=== PATIENT | female | born 1970 | race Caucasian/White ===

== ENCOUNTER 2024-02-10 01:50 | Emergency (ER) | payer SELFPAY ==
[2024-02-10 01:50] VITALS: BMI 26.0
[2024-02-10 01:55] VITALS: BP 135/90
[2024-02-10 02:26] VITALS: BP 114/87
[2024-02-10 02:47] LABS: Urine Albumin Negative (Neg - Trace); Urine Bilirubin Negative (Negative); Urine Character Clear (Clear); Urine Color Yellow; Urine Glucose Negative (Negative); Urine Ketone Negative (Negative); Urine Leukocyte Trace (Negative); Urine Nitrite Negative (Negative); Urine Occult Blood Negative (Negative); Urine Urobilinogen Negative (Neg - 1+); Urine pH 6.5 (5.0-9.0)
[2024-02-10 03:00] VITALS: BP 108/82
--- NOTE | 2024-02-10 03:28 | ED.GENMED ---
History of Present Illness
<OLIVIA Wallis - Last Filed: 02/10/24 04:04>
General
Chief Complaint: Fatigue
Source: patient
Exam Limitations: none
Time Seen by Provider: 02/10/24 03:22
Nursing documentation reviewed up to this point in time: agreed with
History of Present Illness
History of Present Illness:
Pt is a 53 yo F with no significant PMH who presents to the ED for fatigue x 2 months. She states over the past two months she has noticed herself progressively getting tired faster throughout the day and just doesn't feel like herself. Pt
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 She was too tired to go into work today. She notes that she moved here within the past year and has not
established primary care so it has been a while since she has had lab work done. She admits to familial history of HTN on her father's side and breast/colon cancer on her mother's side. Pt denies CUETO, changes in vision, chest pain, SOB, dyspnea,
cough, fever, n/v/d/c, abdominal pain. Pt has a PMH of L clavicular surgery. Pt denies PMH of thyroid disorders, HTN, HLD, cancer.
Past History
<OLIVIA Wallis - Last Filed: 02/10/24 04:04>
Past History
ED Past Surgical History: Gynecological ()
Review of Systems
<OLIVIA Wallis - Last Filed: 02/10/24 04:04>
Review of Systems
Allergies reviewed?: Yes
Constitutional: Reports fatigue, sleep disturbance and chills (pt states this comes on randomly); Denies fever, weight gain, weight loss or night sweats
Respiratory: Denies cough, hemoptysis or trouble breathing
Cardiac: Denies chest pain, diaphoresis, palpitations or syncope
ABD/GI: Denies abdominal pain, nausea, vomiting, diarrhea or constipated
: Reports other (pt states she occasionally has cloudy urine after working when she holds her urine for extended periods of time ); Denies dysuria, frequency, flank pain, incontinence, difficulty voiding or urgency
Musculoskeletal: Reports back pain (lower)
Neurological: Denies dizzy, headache, weakness or numbness
Phy Exam
<OLIVIA Wallis - Last Filed: 02/10/24 04:04>
General Physical Exam
General Presentation: well appearing and no apparent distress
General age: appears stated age
General Skin: warm and dry
General Habitus: normal
General Mental: alert
General Hydration: appears well hydrated
Eye Exam
Eye Exam: PERRL
Cardiovascular Exam
Cardiovascular Exam: regular rate/rhythm and no edema
Heart Sounds: normal
Pulmonary Exam
Pulmonary Exam: lungs clear, no respiratory distress, no wheezing and no cough
Gastrointestinal Exam
Gastrointestinal Exam: normal bowel sounds, non tender, soft and non distended
Neurological Exam
Neurological Exam: alert, oriented x3, no motor deficits and no sensory deficits
Musculoskeletal Exam
Musculoskeletal Exam: back pain (not reproducible on palpation)
Psychiatric Exam
Psychiatric Exam: normal mood/affect
Course
<OLIVIA Wallis - Last Filed: 02/10/24 04:04>
Orders/Labs/Results
Orders:
Orders
02/10/24 02:31
Urinalysis Reflex To Culture Urgent
Date Specimen was Collected: 02/10/24
Time Specimen was Collected: 02:29
Urine Microscopic Reflex Cult Urgent
02/10/24 03:49
CBC/With Diff [Complete Blood Count/With Diff] Urgent
CMP [Comprehensive Metabolic Panel] Urgent
Free T4 Urgent
TSH Reflex To Free T4 Urgent
Abnormal Lab Results
02/10/24 02/10/24
02:31 03:49
MCH 31.2 H pg
(27.0-31.0)
Carbon Dioxide 19 L mmol/L
(22-30)
BUN 19 H mg/dl
(7-17)
AST 42 H U/L
(14-36)
TSH (Reflex) 5.87 H uIU/ml
(0.47-4.68)
Leukocyte Esterase Rfl Trace A
(Negative)
Urine Bacteria (Reflex) Few A
(Negative)
02/10/24 03:49
02/10/24 03:49
Vital Signs
Initial and Last Documented VS:
Initial Vital Signs
Temp Pulse Resp BP Pulse Ox
98.2 F 72 18 135/90 98
02/10/24 01:55 02/10/24 01:55 02/10/24 01:55 02/10/24 01:55 02/10/24 01:55
Last Documented Vital Signs
Temp Pulse Resp BP Pulse Ox
98.2 F 66 18 101/87 96
02/10/24 01:55 02/10/24 04:45 02/10/24 04:45 02/10/24 04:00 02/10/24 04:45
<Gabby Sadler, DO - Last Filed: 02/10/24 05:41>
Orders/Labs/Results
Orders:
Orders
02/10/24 02:31
Urinalysis Reflex To Culture Urgent
Date Specimen was Collected: 02/10/24
Time Specimen was Collected: 02:29
Urine Microscopic Reflex Cult Urgent
02/10/24 03:49
CBC/With Diff [Complete Blood Count/With Diff] Urgent
CMP [Comprehensive Metabolic Panel] Urgent
Free T4 Urgent
TSH Reflex To Free T4 Urgent
Abnormal Lab Results
02/10/24 02/10/24
02:31 03:49
MCH 31.2 H pg
(27.0-31.0)
Carbon Dioxide 19 L mmol/L
(22-30)
BUN 19 H mg/dl
(7-17)
AST 42 H U/L
(14-36)
TSH (Reflex) 5.87 H uIU/ml
(0.47-4.68)
Leukocyte Esterase Rfl Trace A
(Negative)
Urine Bacteria (Reflex) Few A
(Negative)
02/10/24 03:49
02/10/24 03:49
Vital Signs
Initial and Last Documented VS:
Initial Vital Signs
Temp Pulse Resp BP Pulse Ox
98.2 F 72 18 135/90 98
02/10/24 01:55 02/10/24 01:55 02/10/24 01:55 02/10/24 01:55 02/10/24 01:55
Last Documented Vital Signs
Temp Pulse Resp BP Pulse Ox
98.2 F 66 18 101/87 96
02/10/24 01:55 02/10/24 04:45 02/10/24 04:45 02/10/24 04:00 02/10/24 04:45
<OLIVIA Wallis - Last Filed: 02/10/24 04:04>
MDM/Problems Addressed
Differential Diagnosis Includes:
anxiety/depression, fibromyalgia, hypothyroidism
<OLIVIA Wallis - Last Filed: 02/10/24 04:04>
*Critical Care Note
Total Time (30-74mins, 75-104mins- exclusive of procedures): Not Applicable
<Gabby Sadler DO - Last Filed: 02/10/24 05:41>
*Pulse Oximetry
Patient hypoxic: no
ED Attending Note
<OLIVIA Wallis - Last Filed: 02/10/24 04:04>
-
Portions of this chart may have been created with voice recognition software.� Occasional wrong word or��sound alike� substitutions may have occurred due to the inherent limitations of voice recognition software.
<Gabby Sadler DO - Last Filed: 02/10/24 05:41>
ED Attending Note
Patient seen and examined by attending physician: Yes
I performed the substantive portion of visit, reviewed & personally made and approve the management plan that is documented in note by myself or CM.: Yes
ED Attending Note:
This is a 53-year-old woman with history of anxiety/depression, chronically maintained on Lexapro 20 mg daily. She admits to inadvertently running out of Lexapro 3 days ago as she relocated from [place] to this area in November and thus far
has not established with a local PCP. She does admit to moderate ongoing stress, working full-time in a restaurant as a breakfast server. She complains of several month history of generalized fatigue, generalized weakness, some low back pain and admits that
she holds her urine for extended time while at work and was concerned for possible kidney injury due to holding her urine. She denies dysuria nor urgency but occasionally notes some foul-smelling urine. She denies flank pain, no fever no chills,
no change in weight. Appetite has been good.
She has had no falls nor injuries. She does note intermittent low back pain, worse with bending and lifting but no radiation of the pain, no weakness nor numbness, no saddle anesthesia.
She is postmenopausal.
GENERAL: 53-year-old woman appears her stated age. Bright and alert, well-dressed, well-groomed, appears mildly anxious, somewhat worried but easily communicative and in no acute distress. Vital signs within normal limits.
EYE: pupils equal and reactive. anicteric
NECK: Supple, nontender, no meningismus, no significant adenopathy.
ENT: posterior pharynx is clear, oral mucosa is moist. TM clear b/l, nares patent.
CARDIAC: Regular rate and rhythm. no murmur.
LUNGS: Clear breath sounds bilaterally, no acute respiratory distress, no wheezes/rales/rhonchi
ABDOMEN: Soft, nondistended, without focal tenderness, no r/g, no cvat. normoactive BS.
NEUROLOGICAL: Alert and oriented x3, no focal neuro deficits. Gait is hathaway and steady.
SKIN: Warm and dry, normal color, skin intact. No rash.
MUSCULOSKELETAL: No C/C/E. peripheral pulses are full and equal b/l. No palpable tenderness.
PSYCH: Mildly anxious. Cooperative. Normal speech pattern.
Patient presents with generalized fatigue, low back pain, and admits to moderate ongoing stress/anxiety. Symptoms have been persistent for a few months.
Has inadvertently run out of her Lexapro 3 days ago.
Overall exam is benign, no focal neurodeficits. Vital signs within normal limits.
Will check routine labs assess for potential anemia, electrolyte abnormality, thyroid disorder.
Would recommend resumption of Lexapro and I have offered to refill this prescription.
Ultimately patient will need to establish with a PCP locally and will refer to our family practice residency clinic.
Labs show very mild dehydration. Minimally elevated TSH with normal free T4. Mildly elevated AST. Patient admits to occasional alcohol but denies daily alcohol use.
Urinalysis essentially unremarkable, few bacteria but no WBCs, not consistent with UTI.
Plan as above. I have refilled Lexapro.
Encouraged adequate sleep on a nightly basis, stretching exercises for low back strain. Discussed importance of staying well-hydrated on a daily basis.
Patient has been referred to our family practice residency clinic for follow-up.
Discharge Plan
Departure
Patient Disposition: Home (Routine Discharge)
Date of Disposition: 02/10/24
Time of Disposition: 05:36
Patient with high blood pressure during this ER visit?: No
Condition: Good
Discharge Problem:
Fatigue, Stress
Instructions: Fatigue (DC), Stress
Prescriptions:
New
escitalopram oxalate [Lexapro] 20 mg tablet
20 mg PO DAILY Qty: 30 1RF
No Action
escitalopram oxalate [Lexapro] 20 mg Tablet
20 mg PO DAILY
Rx Instructions:
pt reports ran out of meds, hasnt taken in about 2 days
Referrals:
[facility] [Provider Group] - Call in 1-3 days for appt
NONE,* [Family Provider] -
Interventions
Interventions:
*Risk Screen - Suicide Last Done: 02/10/24 01:55
*General Assessment Last Done: 02/10/24 01:55
*Neglect/Abuse Screening Last Done: 02/10/24 01:55
ED- Fall Risk Assessment Last Done: 02/10/24 01:55
*ED COVID-19 Vaccine History Last Done: 02/10/24 01:55
Discharge Date and Time
Print Language: SENEGALESE
[2024-02-10 04:00] VITALS: BP 101/87
[2024-02-10 04:14] LABS: % Basophils 1.5 % (0-2); % Eosinophils 4.8 % (0-6); % Immature Granulocytes 0.4 % (0-0.5); % Lymphocytes 30.7 % (20.5-51.1); % Monocytes 6.7 % (1.7-9.3); % Neutrophils 55.9 % (42.2-75.2); Absolute Basophils 0.1 10^3/uL (0-0.2); Absolute Eosinophils 0.3 10^3/uL (0-0.7); Absolute Lymphocytes 2.1 10^3/uL (1.2-3.4); Absolute Monocytes 0.5 10^3/uL (0.1-0.6); Absolute Neutrophils 3.8 10^3/uL (1.4-6.5); Hematocrit 37.7 % (37.0-47.0); Hemoglobin 13.2 g/dL (12.0-16.0); Mean Corpuscular Hgb 31.2 pg (27.0-31.0); Mean Corpuscular Volume 89.1 fL (81.0-99.0); Mean Platelet Volume 9.1 fL (7.4-10.4); Nucleated Red Blood Cells % 0 %; Platelet Count 197 10^3/uL (130-400); Red Blood Cell Count 4.23 10^6/uL (4.20-5.40); Red Cell Dist. Width 11.8 % (11.5-14.5); White Blood Cell Count 6.7 10^3/uL (4.8-10.8)
[2024-02-10 04:24] LABS: Urine Bacteria Few (Negative); Urine Red Blood Cell 0-2 /HPF (0-2); Urine White Cell 0-2 /HPF (0-5)
[2024-02-10 04:26] LABS: ALT (SGPT) 33 U/L (0-35); AST (SGOT) 42 U/L (14-36); Albumin 4.5 g/dl (3.5-5.0); Alkaline Phosphatase 77 U/L (38-126); Blood Urea Nitrogen 19 mg/dl (7-17); Calcium 9.5 mg/dl (8.4-10.2); Carbon Dioxide 19 mmol/L (22-30); Chloride 106 mmol/L (98-107); Estimated Creatinine Clearance 94 ml/min; Glucose 84 mg/dl (70-99); Potassium 4.2 mmol/L (3.5-5.1); Sodium 140 mmol/L (135-145); Total Bilirubin 0.2 mg/dl (0.2-1.3); Total Protein 6.9 g/dl (6.3-8.2); eGFR > 60.00
[2024-02-10 04:58] LABS: TSH Reflex To Free T4 5.87 uIU/ml (0.47-4.68)
[2024-02-10 05:00] VITALS: BP 109/81
[2024-02-10 05:28] LABS: Free T4 1.07 ng/dl (0.78-2.19)
== END 2024-02-10 06:16 | disposition home or self-care (01) ==
LOC: EMR 01:50
PROVIDERS: EMERGENCY PHYSICIAN Emergency Medicine
DX: R53.83 Other fatigue (principal); F43.9 Reaction to severe stress, unspecified; I10 Essential (primary) hypertension; Z80.0 Family history of malignant neoplasm of digestive organs
CPT/HCPCS: 99283; 80053; 81003; 81015; 84439; 84443; 85025

== ENCOUNTER 2024-05-16 22:37 | Emergency (ER) | payer SELFPAY ==
[2024-05-16 22:41] VITALS: BP 138/100
--- NOTE | 2024-05-16 23:50 | ED.GENMED ---
History of Present Illness
General
Chief Complaint: Depression
Time Seen by Provider: 05/16/24 23:15
History of Present Illness
History of Present Illness:
54-year-old female presents emergency department for evaluation of worsening anxiety and depression. She stopped taking her Lexapro and Wellbutrin approximately 2 to 3 weeks ago and since that time has had increasing anxiety. She stopped because
she thought she could manage without them but feels as though her symptoms are dramatically worsened. Denies SI or HI. She is not interested in inpatient management. She is hopeful for referrals to outpatient programs or potentially a partial
program.
Past History
Past History
ED Past Surgical History: Gynecological ()
Review of Systems
Review of Systems
Allergies reviewed?: Yes
All Other Systems: ROS reviewed and negative except as documented in HPI and ROS
Phy Exam
Physical Exam
Physical Exam:
GEN: Well appearing, NAD, WDWN
HEENT: Oral mucosa moist, no scleral icterus
Cardiac: Regular rate
Lung: No respiratory distress, no tachypnea
MSK: No gross deformity or injuries
Skin: Good color, no pallor or jaundice, no rashes
Neuro: AO x3, moves all extremities freely
Psych: Calm, cooperative
Course
Orders/Labs/Results
Orders:
Orders
05/16/24 23:21
Crisis Consult Urgent
Reason for Consult: depression
Vital Signs
Initial and Last Documented VS:
Initial Vital Signs
Temp Pulse Resp BP Pulse Ox
97.8 F 78 20 138/100 98
05/16/24 22:41 05/16/24 22:41 05/16/24 22:41 05/16/24 22:41 05/16/24 22:41
Last Documented Vital Signs
Temp Pulse Resp BP Pulse Ox
97.8 F 78 20 138/100 98
05/16/24 22:41 05/16/24 22:41 05/16/24 22:41 05/16/24 22:41 05/16/24 22:41
MDM/Problems Addressed
MDM/Problems Addressed:
Patient was evaluated by crisis, at this time no need for inpatient management. I will restart her on her esCitalopram as she discontinued this approximately 3 weeks ago, will be referred to outpatient resources by crisis
*Critical Care Note
Total Time (30-74mins, 75-104mins- exclusive of procedures): Not Applicable
ED Attending Note
-
Portions of this chart may have been created with voice recognition software.� Occasional wrong word or��sound alike� substitutions may have occurred due to the inherent limitations of voice recognition software.
Discharge Plan
Departure
Patient Disposition: Home (Routine Discharge)
Date of Disposition: 05/17/24
Time of Disposition: 00:40
Patient with high blood pressure during this ER visit?: No
Discharge Problem:
Depression
Instructions: Depression, Adult (DC)
Prescriptions:
New
escitalopram oxalate 5 mg tablet
5 mg PO DAILY Qty: 70 0RF
Rx Instructions:
5mg PO qd x 1 week, then 10mg PO qd x 1 week, then 15 mg PO qd x 1 week, then 20mg PO qd
No Action
escitalopram oxalate [Lexapro] 20 mg Tablet
20 mg PO DAILY
Rx Instructions:
pt reports ran out of meds, hasnt taken in about 2 days
escitalopram oxalate [Lexapro] 20 mg tablet
20 mg PO DAILY Qty: 30 1RF
Referrals:
NONE,* [Family Provider] -
Activity Restrictions/Additional Instructions:
Follow up with resources as provided by crisis
Interventions
Interventions:
*Risk Screen - Suicide Last Done: 05/16/24 22:41
*Neglect/Abuse Screening Last Done: 05/16/24 22:41
*ED- Fall Risk Assessment Last Done: 05/17/24 00:51
*ED COVID-19 Vaccine History Last Done: 05/17/24 00:51
*Nursing Disposition Last Done: 05/17/24 00:51
ED-Psychological Assessment Last Done: 05/16/24 23:55
Discharge Date and Time
Discharge Date/Time: 05/17/24 00:53
Print Language: BAHAMIAN
== END 2024-05-17 00:53 | disposition home or self-care (01) ==
LOC: EMR 22:37
PROVIDERS: EMERGENCY PHYSICIAN Student in an Organized Health Care Education/Training Program
DX: F32.A Depression, unspecified (principal); F41.9 Anxiety disorder, unspecified
CPT/HCPCS: 99283